=== PATIENT | female | born 1960 | race Caucasian/White ===

== ENCOUNTER 2016-07-10 21:43 | Emergency (ER) | payer OTHER ==
--- NOTE | 2016-07-10 22:10 | UCPHY ---
H & P Time Seen by Provider: 07/10/16 22:03 Patient Type: Established HPI/ROS: CHIEF COMPLAINT: Cough, sinus pressure. HISTORY OF PRESENT ILLNESS: The patient is a 55-year-old female who presents with cough, sore throat, fever, and sinus pressure. She initially developed just sinus pressure and nasal congestion. She then developed productive cough a week ago. The sputum is green. The cough is worse when she lies flat at night, keeping her awake despite the Mucinex. She admits associated right eye discharge - that only started today, sore throat , and low-grade fever, for 3 days that she has been treating with Advil. She denies vomiting, myalgia, chest pain, shortness of breath. She reports having episodes of similar symptoms multiple times per year and reports kicking the symptoms on her own 33% of the time, the other times require antibiotic therapy.. She has been treating her symptoms at night with Mucinex, which is not working very well. She denies known sick contact but does work at a middle school school as a teacher, special Ed. REVIEW OF SYSTEMS: Constitutional: As above. Eyes: As above ENT: As above. Cardiovascular: No chest pain, no palpitations. Respiratory: As above. Gastrointestinal: No nausea vomiting or diarrhea. No abdominal pain. Genitourinary: No hematuria or frequency. Musculoskeletal: No back pain. Skin: No rashes. Neurological: No headache. 10 point ROS otherwise negative Past Medical/Surgical History: Fibromyalgia, chronic low back. Social History: Nonsmoker. Smoking Status: Never smoked Physical Exam: General Appearance: Alert, no distress. Afebrile. Normal phonation. No respiratory distress. Eyes: Pupils equal and round no pallor or injection. No icterus, mild conjunctival injection on the right eye, no mucoid discharge at this point in time. ENT, Mouth: Mucous membranes moist. Pharynx not erythematous and without exudate. TM Clear. Sinuses are tender to palpation particular over the maxillary areas. Neck: No adenopathy. Supple. No JVD. Trachea in midline. Respiratory: There are no retractions, lungs are clear to auscultation. Skin: Warm and dry, no rashes. Musculoskeletal: No joint swelling. Extremities: No edema. Homans sign negative. No cords. Psychiatric: Normal affect. Constitutional: Initial Vital Signs Temperature (C) 36.7 C 07/10/16 22:10 Heart Rate 87 07/10/16 22:10 Respiratory Rate 18 07/10/16 22:10 Blood Pressure 140/88 H 07/10/16 22:10 O2 Sat (%) 94 07/10/16 22:10 O2 Delivery Mode Room Air Allergies/Adverse Reactions: Sulfa (Sulfonamide Antibiotics) Allergy (Intermediate, Verified 07/10/16 22:09) Home Medications: Medication Instructions Recorded CELECOXIB [Celebrex] 200 mg PO BID #60 04/16/11 Amitriptyline HCl [Elavil 50 mg mg PO HS 08/09/11 (*)] Amox Tr/K Clav (Augmentin) 500 mg PO BID #10 tab 07/10/16 [Augmentin 500/125 MG TAB (*)] Amoxicillin 1,500 mg PO BID #30 capsule 07/10/16 Benzonatate 200 mg PO TID PRN #28 capsule 07/10/16 Medical Decision Making Differential Diagnosis: Diagnostic considerations include, but are not limited to, the following: URI, sinusitis, pharyngitis, otitis media, pneumonia, allergy. - Data Points Medications Given: Discontinued Medications Amoxicillin (Amoxicillin) 1,500 mg PO EDNOW ONE PRN Reason: Protocol Stop: 07/10/16 22:27 Last Admin: 07/10/16 22:55 Dose: 1,500 mg Amoxicillin/Clavulanate Potassium (Augmentin 500/125mg Tab) 500 mg PO EDNOW ONE PRN Reason: Protocol Stop: 07/10/16 22:28 Last Admin: 07/10/16 22:55 Dose: Not Given Amoxicillin/Clavulanate Potassium (Augmentin 875mg) 875 mg PO EDNOW ONE PRN Reason: Protocol Stop: 07/10/16 22:57 Last Admin: 07/10/16 22:55 Dose: 875 mg Benzonatate (Tessalon Pearles) 200 mg PO EDNOW ONE Stop: 07/10/16 22:31 Last Admin: 07/10/16 22:55 Dose: 200 mg Departure - Departure Disposition: Home, Routine, Self-Care Clinical Impression: Sinusitis Instructions: Sinusitis (ED) Additional Instructions: Drink plenty of fluids and be sure to get plenty of rest. Take Augmentin/amoxicillin as prescribed. Take Delsym four tsp twice daily as needed, or Benzonatate, or Mucinex but not in combination. Take 650mg Tylenol every 4-6 hours as needed for pain and fever. Follow up with your primary care provider in the next 3-4 days if symptoms are not improving. Referrals: Alexandria Tamez MD [Primary Care Provider] - As per Instructions Prescriptions: Amoxicillin 1,500 mg PO BID #30 capsule Amox Tr/K Clav (Augmentin) [Augmentin 500/125 MG TAB (*)] 500 mg PO BID #10 tab Benzonatate 200 mg PO TID PRN #28 capsule PRN Reason: Cough, Moderate - PQRS PQRS Measurement: Not applicable Report Scribed for: Chaz Aguilera Report Scribed by: Jeffery Priest Date of Report: 07/10/16 Time of Report: 22:06
[2016-07-10 22:13] VITALS: BP 140/88; PULSE 87; RESP 18; TEMP 98.1; O2SAT 94
[2016-07-10] MEDS ORDERED: AMOX/CLAVULANATE 500/125 MG TAB PO ONE (22:27)
[2016-07-10] MEDS ORDERED: BENZONATATE 100 MG CAP PO ONE (22:30)
[2016-07-10] MEDS ORDERED: AMOXICILLIN/CLAVULANATE POT 875/125 MG TAB PO ONE ×2 (22:44→22:56)
== END 2016-07-10 22:59 | disposition home or self-care (01) ==
LOC: CED 21:43
DX: J32.9 Chronic sinusitis, unspecified (principal); M79.7 Fibromyalgia; M54.5 Low back pain
CPT/HCPCS: 99214-PO; G0463-PO

== ENCOUNTER → 2017-12-26 | Outpatient (CLI) | payer OTHER | LOC: CIMAGING 11:21 | PROVIDERS: ATTEND Family Medicine | DX: Z12.31 Encounter for screening mammogram for malignant neoplasm of breast (principal) ==